=== PATIENT | female | born 1975 | race Caucasian/White ===

== ENCOUNTER 2017-03-02 09:58 | Outpatient (CLI) | payer OTHER ==
[2017-03-02 10:32] LABS: Hematocrit 42.4 % (30.3-42.9); Hemoglobin 14.2 gm/dl (10.1-14.3); Mean Corpuscular HGB Conc 33 % (30-34); Mean Corpuscular Hemoglobin 30 pg (28-32); Mean Corpuscular Volume 90 fl (79-97); Platelet Count 272 K/mm3 (140-440); Red Blood Count 4.74 M/mm3 (3.65-5.03); Red Cell Distribution Width 13.1 % (13.2-15.2); White Blood Count 5.7 K/mm3 (4.5-11.0)
[2017-03-02 11:00] LABS: Erythrocyte Sedimentation Rate 6 mm/Hr (0-20)
[2017-03-02 14:57] LABS: Alanine Aminotransferase 13 units/L (7-56); Albumin 4.4 g/dL (3.9-5); Albumin/Globulin Ratio 1.5 %; Alkaline Phosphatase 62 units/L (35-129); Anion Gap 20 mmol/L; BUN/Creatinine Ratio 14.28; Blood Urea Nitrogen 10 mg/dL (7-17); Calcium 9.6 mg/dL (8.4-10.2); Carbon Dioxide 23 mmol/L (22-30); Chloride 98.6 mmol/L (98-107); Glucose 85 mg/dL (65-100); Sodium 138 mmol/L (137-145); Total Protein 7.4 g/dL (6.3-8.2)
== END 2017-03-02 09:59 | disposition home or self-care (01) ==
LOC: LAB 09:58
PROVIDERS: ATTEND Specialist
DX: M50.80 Other cervical disc disorders, unspecified cervical region (principal)
CPT/HCPCS: 36415; 80053; 82607; 83036; 83921; 85027; 85652; 86038; 86225; 86334; 86618